=== PATIENT | male | born 1960 | race Caucasian/White ===

== ENCOUNTER 2019-05-29 21:38 | Emergency (ER) | payer MEDICARE, MEDICAID ==
[~2019-05-29] VITALS: Ht 182.9 cm; Wt 78.0 kg
[2019-05-30] MEDS ORDERED: ASPI81TA85 PO (00:57)
[2019-05-30] MEDS ORDERED: FENO200C PO (00:57)
[2019-05-30] MEDS ORDERED: MULTTAB13 PO (00:57)
[2019-05-30] MEDS ORDERED: THIO10TA PO (00:57)
[2019-05-30] MEDS ORDERED: DITR5TAB PO (00:57)
[2019-05-30] MEDS ORDERED: D200CAP3 PO (00:57)
[2019-05-30] MEDS ORDERED: OMEP-218 PO (00:57)
[2019-05-30] MEDS ORDERED: VRAY3CAP PO (00:57)
[2019-05-30] MEDS ORDERED: METO200T28 PO (00:57)
[2019-05-30] MEDS ORDERED: DIVA500T9 PO ×2 (00:57)
[2019-05-30] MEDS ORDERED: SIMV20TA2 PO (00:57)
[2019-05-30] MEDS ORDERED: LORazepam 1 MG TAB PO STA (00:57)
[2019-05-30] MEDS ORDERED: TRAZ-189 PO (00:57)
[2019-05-30] MEDS ORDERED: TRIA0.5O TOP (00:57)
[2019-05-30] MEDS ORDERED: PRAZ5CAP22 PO (00:57)
[2019-05-30] MEDS ORDERED: MOBI10CR TOP (00:57)
[2019-05-30] MEDS ORDERED: LORA0.5T11 PO (00:57)
[2019-05-30] MEDS ORDERED: CLAR10CA3 PO (00:57)
[2019-05-30] MEDS ORDERED: ACETAMINOPHEN TAB 650MG DOSE (2X325MG) PO ONE (01:00)
[2019-05-30] MEDS ORDERED: LEXA1TAB PO (08:32)
[2019-05-30] MEDS ORDERED: VITAMIN D 1,000 INTERNATIONAL UNITS TABLET PO ONE (09:15)
[2019-05-30] MEDS ORDERED: DIVALPROEX 500MG *ER* TAB PO ONE (09:15)
[2019-05-30] MEDS ORDERED: MULTIVITAMINS/MINERALS THERAP 1 TAB PO ONE (09:15)
[2019-05-30] MEDS ORDERED: OMEPRAZOLE 20 MG CAP PO ONE (09:15)
[2019-05-30] MEDS ORDERED: ASPIRIN 81 MG ENTERIC TAB PO ONE (09:15)
[2019-05-30] MEDS ORDERED: FENOFIBRATE 145 MG TAB (TRICOR) PO ONE ×2 (09:15)
[2019-05-30] MEDS ORDERED: oxyBUTYnin *DITROPAN XL* 5 MG TABCR PO ONE (09:15)
[2019-05-30] MEDS ORDERED: METOPROLOL TART 25 MG TABLET PO ONE (09:15)
[2019-05-30] MEDS ORDERED: ESCITALOPRAM OXALATE 10 MG TAB (LEXAPRO) PO ONE (09:15)
[2019-05-30] MEDS ORDERED: PRAZOSIN 1 MG CAP PO ONE (09:15)
[2019-05-30] MEDS ORDERED: ASPIRIN 325 MG TAB PO ONE (09:15)
[2019-05-30] MEDS ORDERED: METOPROLOL SUCC *XL* 25MG TAB (TopROL *XL*) PO ONE (09:30)
[2019-05-30 10:08] VITALS: BP 153/81
[2019-05-30] MEDS ORDERED: LORA1TAB12 PO (10:12)
[2019-05-30] MEDS ORDERED: MICO2CRE42 TOP (10:12)
[2019-05-30] MEDS ORDERED: METO1TAB32 PO (10:12)
[2019-05-30] MEDS ORDERED: VRAY4.5C PO (10:12)
[2019-05-30] MEDS ORDERED: HALOPERIDOL 10 MG TAB PO ONE (11:00)
[2019-05-30] MEDS ORDERED: BENZTROPINE 1 MG TAB PO ONE (11:00)
[2019-05-30] MEDS ORDERED: BENZ-52 PO ×2 (15:02→15:49)
[2019-05-30] MEDS ORDERED: HALO10TA20 PO ×2 (15:02→15:49)
[2019-05-30 17:11] VITALS: BP 164/82
== END 2019-05-30 17:15 | disposition home or self-care (01) ==
LOC: M ED 21:38
DX: F72 Severe intellectual disabilities (principal); F91.9 Conduct disorder, unspecified; Z79.899 Other long term (current) drug therapy; Z79.82 Long term (current) use of aspirin

== ENCOUNTER → 2020-05-18 | Outpatient (REF) | payer MEDICARE, MEDICAID ==
[~2020-05-18] MED LIST: ASPI81TA86 PO; BENZ-52 PO; CLAR10CA3 PO; D200CAP3 PO; DITR5TAB PO; DIVA500T9 PO; FENO200C PO; HALO10TA20 PO; LEXA1TAB PO; LORA0.5T5 PO; LORA1TAB4 PO; METO1TAB32 PO; METO200T28 PO; MICO2CRE42 TOP; MOBI10CR TOP; MULTTAB13 PO; OMEP-218 PO; PRAZ5CAP22 PO; SIMV20TA22 PO; THIO10TA PO; TRAZ-189 PO; TRIA0.5O TOP; VRAY3CAP PO; VRAY4.5C PO
[2020-05-18 17:39] LABS: APPEARANCE, URINE HAZY (CLEAR); BACTERIA, URINE AUTO NEGATIVE (NEGATIVE); BILIRUBIN, URINE AUTO NEGATIVE (NEGATIVE); BLOOD, URINE BLOOD NEGATIVE (NEGATIVE); CALCIUM OXALATE CRYSTALS MODERATE; COLOR, URINE AMBER (YELLOW); GLUCOSE, URINE (UA) AUTO NEGATIVE (NEGATIVE); KETONE, URINE AUTO TRACE mg/dL (NEGATIVE); LEUKOCYTE ESTERASE, URINE AUTO NEGATIVE (NEGATIVE); MUCUS, URINE LARGE (NEGATIVE); NITRITE, URINE AUTO NEGATIVE (NEGATIVE); PROTEIN, URINE AUTO 1+ mg/dL (NEGATIVE); RBC, URINE AUTO 0 /HPF (0-3); SPECIFIC GRAVITY URINE AUTO 1.028 (1.002-1.035); SQUAMOUS EPITHELIAL CELL UR AU 0 /HPF (0-6); WBC, URINE AUTO 1 /HPF (0-3)
== END ==
LOC: M LAB REF 10:50
PROVIDERS: ATTEND Nurse Practitioner Women's Health
DX: R35.0 Frequency of micturition (principal)
CPT/HCPCS: 51798; 81001; 87086; G0463